=== PATIENT | female | born 1960 | race African-American/Black ===

== ENCOUNTER 2016-08-12 12:55 | Emergency (ER) | payer SELFPAY ==
[2016-08-12 13:01] VITALS: BMI 32.8
--- NOTE | 2016-08-12 13:30 | DR.GENAD ---
HPI - PCP Primary Care Physician: KORTNEY - HPI Comment HPI Comment: PATIENT OUT OF HER MEDICATIONS. SHE IS A DIABETIC AND HAVE HYPERTENSION. NO PCP CURRENTLY. BLOOD PRESSURE IS ELEVATED. PARESTHESIA NOTED TODAY. HEADACHE ON AND OFF FOR FEW DAYS. WORSE TODAY. NO FEVER. - Complaint/Symptoms Chief Complaint Doctors Comments: HEADACHE, WEAKNESS, LEFT ARM PAIN AND LEFT SIDED NUMBNESS. Chief Complaint:: PT C/O HEADACHE, DIZZINESS AND HIGH BLOOD PRESSUE. PT STATES SHE JUST MOVED HERE AND SHE IS OUT OF HER MEDICATIONS. PT STATES SHE ALSO IS A DIABETIC AND IS OUT OF THOSE MEDICATIONS ALSO. - Nurses notes reviewed Nurses Notes Review: Yes - Source History Provided: Patient - Mode of Arrival Mode of Arrival: Ambulatory - Timing Onset of Chief Complaint: 08/12/16 Came on: Suddenly - Duration Duration: Constant Duration: Days - Severity Severity: Moderate PMH - PMH Past Medical History: Yes Past Medical History: Diabetes, Hypertension Past Surgical History: Yes Surgical History: - Family History History of Family Medical Conditions: No - Social History Does any household member use tobacco: No Alcohol Use: None Do you use any recreational Drugs:: No Lives With: Family Lives Where: Home - infectious screening In the last 2 months have you had wt loss of >10#?: NO Have you had fever, night sweats or hemotysis?: No Have you traveled outside the country in the last 6 months?: No Isolation: Standard ROS - Review of Systems Constitutional: Weakness, Fatigue. negative: Chills, Fever Eyes: No Symptoms Reported ENTM: No Symptoms Reported Respiratoy: No Symptoms Reported Cardiovascular: No Symptoms Reported Gastrointestinal/Abdominal: No Symptoms Reported Genitourinary: No Symptoms Reported Neurological: Headache, Numbness (LT SIDE), Paresthesia (LT SIDE), Weakness, Dizziness Musculoskeletal: No Symptoms Reported Integumentary: No Symptoms Reported Hematologic/Lymphatic: No Symptoms Reported Endocrine: No Symptoms Reported All Other Systems: Reviewed and Negative PE - Vital Signs Vitals: Temperature 97.7 F Pulse Rate 90 Respiratory Rate 18 Blood Pressure [Left Arm] 159/97 Blood Pressure 188/89 O2 Sat by Pulse Oximetry 97 - General Limitations: No Limitations General Appearance: Alert - Head Head Exam: Normal Inspection - Eyes Eye exam: Normal Appearance - ENT ENT Exam: Normal External Ear Exam External Ear Exam: Normal External Inspection TM/Canal Exam: Bilateral Normal Nose Exam: Normal Nose Exam Mouth Exam: Normal Inspection Throat Exam: Normal Inspection - Neck Neck Exam: Normal Inspection - Chest Chest Inspection: Symmetric Chest Wall Rise - Respiratory Respiratory Exam: Normal Lung Sounds Bilat Respiratory Exam: Bilateral Clear to Auscultation - Cardiovascular Cardiovascular Exam: Regular Rate, Normal Rhythm, Normal Heart Sounds - Abdominal Exam Abdominal Exam: Normal Bowel Sounds, Soft. negative: Tenderness - Extremities Extremities Exam: Normal Inspection - Back Back Exam: Normal Inspection - Neurologic Neurological Exam: Alert, Oriented X3 - Psychiatric Psychiatric Exam: Anxious - Skin Skin Exam: Normal Color MDM - Differential Diagnosis Differential Diagnosis: HYPERTENSION, CVA, TIA, DKA, PA, LT SIDED PARESTHESIA. Course - Treatment Treatment: PROCARDIA IN ED. BP DECREASING. SEE ORDERS. - Education/Counseling Education/Counseling: Patient, Education Educated On: Treatment, Diagnosis, Needs for Follow Up ROR - Labs Reviewed Laboratory Results Reviewed?: Yes Result Diagrams: 08/12/16 13:34 08/12/16 13:34 Laboratory: WBC 6.1 X10^3/uL (3.6-10.0) 08/12/16 13:34 RBC 4.72 X10^6/uL (3.5-5.4) 08/12/16 13:34 Hgb 12.0 g/dL (12.0-16.0) 08/12/16 13:34 Hct 37.2 % (36.0-47.0) 08/12/16 13:34 MCV 78.9 fL (80.0-100.0) L 08/12/16 13:34 MCH 25.3 pg (27.0-34.0) L 08/12/16 13:34 MCHC 32.1 g/dL (33.0-35.0) L 08/12/16 13:34 RDW 13.5 % (11.6-16.5) 08/12/16 13:34 Plt Count 198 X10^3/uL (150.0-450.0) 08/12/16 13:34 Plt Count Comment Adequate (ADEQUATE) 08/12/16 13:34 MPV 9.7 fL (7.4-11.0) 08/12/16 13:34 Neut % 47.3 % (42.0-75.0) 08/12/16 13:34 Lymph % 38.6 % (21.0-51.0) 08/12/16 13:34 [place] % 11.2 % (0.0-13.0) 08/12/16 13:34 Eos % 2.0 % (0.9-2.9) 08/12/16 13:34 Baso % 0.9 % (0.2-1.0) 08/12/16 13:34 Neut # 2.9 x10^3/uL (2.2-4.8) 08/12/16 13:34 Lymph # 2.3 X10^3/uL (1.3-2.9) 08/12/16 13:34 [place] # 0.7 x10^3/uL (0.3-0.8) 08/12/16 13:34 Eos # 0.1 x10^3/uL (0.0-0.2) 08/12/16 13:34 Baso # 0.1 X10^3/uL (0.0-0.1) 08/12/16 13:34 Absolute Nucleated RBC 0.1 /100WBC 08/12/16 13:34 Plt Morphology Comment Normal (NORMAL) 08/12/16 13:34 RBC Morphology Abnormal (NORMAL) A 08/12/16 13:34 Microcytosis Slight A 08/12/16 13:34 Sodium 144 mmol/L (136-145) 08/12/16 13:34 Corrected Sodium 146 mmol/L (136-145) H 08/12/16 13:34 Potassium 3.8 mmol/L (3.5-5.1) 08/12/16 13:34 Chloride 105 mmol/L (98-107) 08/12/16 13:34 Carbon Dioxide 30.6 mmol/L (21-32) 08/12/16 13:34 BUN 9 mg/dL (7-18) 08/12/16 13:34 Creatinine 0.85 mg/dL (0.55-1.02) 08/12/16 13:34 Est GFR (MDRD) Af Amer > 60 (>60) 08/12/16 13:34 Est GFR (MDRD) Non-Af > 60 (>60) 08/12/16 13:34 Glucose 203 mg/dL (65-99) H 08/12/16 13:34 Calcium 8.8 mg/dL (8.5-10.1) 08/12/16 13:34 Corrected Calcium 9.4 mg/dL (8.5-10.1) 08/12/16 13:34 Total Bilirubin 0.30 mg/dL (0.2-1.0) 08/12/16 13:34 AST 17 Units/L (15-37) 08/12/16 13:34 ALT 26 Units/L (12-78) 08/12/16 13:34 Alkaline Phosphatase 115 Units/L (46-116) 08/12/16 13:34 Creatine Kinase 89 Units/L (26-192) 08/12/16 13:34 CK-MB (CK-2) < 1.0 ng/mL (0-4.0) 08/12/16 13:34 CK/CKMB % Calc 1.1 % (<4) 08/12/16 13:34 Troponin I < 0.02 ng/mL (0-1.5) 08/12/16 13:34 Total Protein 7.6 g/dL (6.4-8.2) 08/12/16 13:34 Albumin 3.3 g/dL (3.4-5.0) L 08/12/16 13:34 Globulin 4.3 g/dL (2.5-4.5) 08/12/16 13:34 Albumin/Globulin Ratio 0.8 Ratio (1.1-2.1) L 08/12/16 13:34 - XRAY XRAY Interpreted by: Radiologist XRAY Findings: REPORT DISCUSS WITH PATIENT. - EKG Rhythm: NSR (EKG NOTED) - Diagnosis Discharge Problem: Hyperglycemia, Paresthesia Hypertension Qualifiers: Hypertension type: essential hypertension Qualified Code(s): I10 - Essential ( primary) hypertension - Discharge Plan Disposition: HOME, SELF-CARE Condition: Stable Prescriptions: Hydrochlorothiazide [Hydrochlorothiazide 25 mg Tab] 25 mg PO QAM #30 tab Metformin HCl [GLUCOPHAGE 500 MG *] 500 mg PO BID #60 tab Nifedipine Ext Rel [Procardia Xl] 60 mg PO DAILY #30 tabcr - Follow ups/Referrals Follow ups/Referrals: NFD,None [Primary Care Provider] - 3 days ANABELL VILLAFANA [STAFF PHYSICIAN] - 3 days - Instructions Instructions: Hyperglycemia, [id number], Hypertension, Paresthesia Additional Instructions: RETURN TO ED IF WORSE.
[2016-08-12 13:41] LABS: BASOPHILS # (AUTO) 0.1 X10^3/uL (0.0-0.1); BASOPHILS % (AUTO) 0.9 % (0.2-1.0); EOSINOPHILS # (AUTO) 0.1 x10^3/uL (0.0-0.2); HEMATOCRIT 37.2 % (36.0-47.0); LYMPHOCYTES # (AUTO) 2.3 X10^3/uL (1.3-2.9); LYMPHOCYTES % (AUTO) 38.6 % (21.0-51.0); MEAN CORPUSCULAR HEMOGLOBIN 25.3 pg (27.0-34.0); MEAN CORPUSCULAR HGB CONC 32.1 g/dL (33.0-35.0); MEAN CORPUSCULAR VOLUME 78.9 fL (80.0-100.0); MEAN PLATELET VOLUME 9.7 fL (7.4-11.0); MONOCYTES # (AUTO) 0.7 x10^3/uL (0.3-0.8); MONOCYTES % (AUTO) 11.2 % (0.0-13.0); NEUTROPHILS # (AUTO) 2.9 x10^3/uL (2.2-4.8); NEUTROPHILS % (AUTO) 47.3 % (42.0-75.0); PLATELET COUNT 198 X10^3/uL (150.0-450.0); RED BLOOD COUNT 4.72 X10^6/uL (3.5-5.4); RED CELL DISTRIBUTION WIDTH 13.5 % (11.6-16.5); WHITE BLOOD COUNT 6.1 X10^3/uL (3.6-10.0)
[2016-08-12 13:54] VITALS: BP 159/97
[2016-08-12] MEDS ORDERED: NIFEDIPINE CAP 10 MG PO ONE (13:54)
[2016-08-12 13:58] LABS: MICROCYTOSIS SLIGHT
[2016-08-12 14:01] LABS: PLATELET MORPHOLOGY COMMENT NORMAL (NORMAL)
[2016-08-12 14:03] LABS: BLOOD UREA NITROGEN 9 mg/dL (7-18); CALCIUM 8.8 mg/dL (8.5-10.1); CARBON DIOXIDE 30.6 mmol/L (21-32); CHLORIDE 105 mmol/L (98-107); COR NA(FOR HYPERGLY) 146 mmol/L (136-145); CREATININE 0.85 mg/dL (0.55-1.02); GLUCOSE 203 mg/dL (65-99); SODIUM 144 mmol/L (136-145); TROPONIN I < 0.02 ng/mL (0-1.5); eGFR BLACK RACES > 60 (>60); eGFR NON BLACK RACES > 60 (>60)
--- NOTE | 2016-08-12 14:04 | RAD ---
AP Chest Indication: Chest pain Comparison: None available Findings: The trachea is midline. The cardiac silhouette is unremarkable. The lungs are clear without focal infiltrate or effusion. The bony thorax is unremarkable. IMPRESSION: 1. No acute cardiopulmonary abnormality. Reported By:
--- NOTE | 2016-08-12 14:06 | CT ---
CT brain without contrast Indication: Left-sided paresthesia Comparison: None available Technique: Multiple axial images of the brain were obtained from the skull base to the vertex without administr ation of IV contrast. Coronal and sagittal images were also provided. Radiation dose reduction techniques were performed utilizing adjustment for MA/kVP based on patient body size. Findings: Mild mucosal thickening of the right maxillary sinus. No acute intraparenchymal hemorrhage or mass can be identified. No extra-axial fluid collections ar e seen. No alteration in the attenuation of the brain parenchyma can be identified to suggest acute or subacute ischemic change. The ventricular system is symmetric and nondilated. The extracranial structures are grossly unremarkable. IMPRESSION: 1. No acute intracranial process is identified. Reported By:
[2016-08-12 14:07] LABS: ALANINE AMINOTRANSFERASE 26 Units/L (12-78); ALBUMIN 3.3 g/dL (3.4-5.0); ALKALINE PHOSPHATASE 115 Units/L (46-116); ASPARTATE AMINO TRANSFERASE 17 Units/L (15-37); CKMB % 1.1 % (<4); COR CA(FOR HYPOALB) 9.4 mg/dL (8.5-10.1); CREATINE KINASE 89 Units/L (26-192); CREATINE KINASE MB < 1.0 ng/mL (0-4.0); TOTAL PROTEIN 7.6 g/dL (6.4-8.2)
== END 2016-08-12 14:32 | disposition home or self-care (01) ==
LOC: ER 13:05
DX: R73.9 Hyperglycemia, unspecified (principal); R20.9 Unspecified disturbances of skin sensation; I10 Essential (primary) hypertension; R51 Headache
CPT/HCPCS: 36415; 70450; 71010; 80053; 82550; 82553; 84484; 85025; 93005; 93010; 99282; 99283

== ENCOUNTER 2016-11-14 18:51 | Emergency (ER) | payer SELFPAY ==
[2016-11-14 19:00] VITALS: BP 146/75; BMI 30.9
--- NOTE | 2016-11-14 20:43 | DR.GENAD ---
HPI - PCP Primary Care Physician: LEDY - HPI Comment HPI Comment: PATIENT USE HER NEB MEDICATION WITHOUT RELIEF. NO FEVER. COUGHING, PRODUCTIVE WITH YELLOW SPUTUM. HAVING CHEST TIGHTNESS ALSO. - Complaint/Symptoms Chief Complaint Doctors Comments: INCRESIONG SOB TIMES ONE WEEK. NOT RESPONDING TO MEDS AT HOME. Chief Complaint:: " BEEN TAKING BREATHING TREATMENTS FOR ABOUT MONTH AND THERE NOT HELPING BEEN COUGHING SNEEZING AND HURTING IN MY SIDE WHEN I COUGH." Self Treatment fo Chief Complaint: BREATHING TREATMENT ALBUTROL @1800 - Nurses notes reviewed Nurses Notes Review: Yes - Source History Provided: Patient - Mode of Arrival Mode of Arrival: Ambulatory - Timing Onset of Chief Complaint: 11/07/16 Came on: Suddenly - Duration Duration: Constant Duration: Days - Severity Severity: Moderate PMH - PMH Past Medical History: Yes Past Medical History: Diabetes, Hypertension Past Surgical History: Yes Surgical History: - Family History History of Family Medical Conditions: Yes Family Medical History: Diabetes Mellitus, [place], Hypertension - Social History Alcohol Use: None Do you use any recreational Drugs:: No Lives Where: Home - infectious screening Have you traveled outside the country in the last 6 months?: No ROS - Review of Systems Constitutional: Weakness, Fatigue. negative: Chills, Fever Eyes: No Symptoms Reported. negative: Eye Pain, Discharge ENTM: Nose Congestion. negative: Ear Pain, Nose Discharge, Throat Pain Respiratoy: Productive Cough, Non-Productive Cough, Short of Breath, Wheezing. negative: Hemoptysis Cardiovascular: Chest Pain (TIGHTNESS), Palpitations. negative: Edema Gastrointestinal/Abdominal: Nausea. negative: Abdominal Pain, Constipation, Diarrhea, Vomiting Genitourinary: negative: Dysuria, Frequency, Hematuria Neurological: Headache, Weakness, Dizziness Musculoskeletal: Back Pain, Muscle Pain PE - Vital Signs Vitals: Temperature 98.3 F Pulse Rate 103 Respiratory Rate 22 Blood Pressure [Left Arm] 159/97 Blood Pressure 146/75 O2 Sat by Pulse Oximetry 96 - General Limitations: No Limitations General Appearance: Alert, Anxious, In Distress - Head Head Exam: Normal Inspection, Atraumatic - Eyes Eye exam: PERRL, EOMI. negative: Scleral Icterus, Conjunctival Injection, Nystagmus - ENT ENT Exam: Normal External Ear Exam External Ear Exam: Normal External Inspection TM/Canal Exam: Bilateral Normal Nose Exam: Normal Nose Exam Mouth Exam: Normal Inspection Throat Exam: Normal Inspection - Neck Neck Exam: Trachea Midline. negative: Tenderness, Meningismus, Lymphadenopathy - Chest Chest Inspection: Symmetric Chest Wall Rise - Respiratory Respiratory Exam: Normal Lung Sounds Bilat Respiratory Exam: Bilateral Wheezing, Bilateral Rhonchi, Upper Wheezing, Lower Wheezing, Lower Rhonchi - Cardiovascular Cardiovascular Exam: Regular Rate, Normal Rhythm, Normal Heart Sounds - Abdominal Exam Abdominal Exam: Normal Bowel Sounds, Soft. negative: Tenderness - Extremities Extremities Exam: Normal Inspection - Back Back Exam: Normal Inspection - Neurologic Neurological Exam: Alert, Oriented X3, CN II-XII Intact, Normal Gait, Reflexes Normal. negative: Motor Sensory Deficit - Psychiatric Psychiatric Exam: Anxious - Skin Skin Exam: Intact MDM - Additional Information Additional Information Obtained From: Family - Differential Diagnosis Differential Diagnosis: PNEUMONIA, BRONCHITIS, ASTHMA EXACERBATION, Course - Treatment Treatment: SEE ODMARIO. NEB TREATMENT, IV SOLUMEDROL AND ANTIBIOTIC TREATMENT IN ED. COMNTINUE TO IMPROVE. D/C HOME WHEN HER BREATHING. - Reevaluation 1st: Improved (SOB IMPROVING. KEPT IN ED TILL BREATHING WAS STABLE. O2 SAT IN 90S.) - Education/Counseling Education/Counseling: Patient, Family, Education Educated On: Treatment, Diagnosis ROR - Labs Reviewed Laboratory Results Reviewed?: Yes Result Diagrams: 11/14/16 21:00 11/14/16 21:00 Laboratory: WBC 7.3 X10^3/uL (3.6-10.0) 11/14/16 21:00 RBC 4.82 X10^6/uL (3.5-5.4) 11/14/16 21:00 Hgb 12.4 g/dL (12.0-16.0) 11/14/16 21:00 Hct 38.0 % (36.0-47.0) 11/14/16 21:00 MCV 78.7 fL (80.0-100.0) L 11/14/16 21:00 MCH 25.7 pg (27.0-34.0) L 11/14/16 21:00 MCHC 32.6 g/dL (33.0-35.0) L 11/14/16 21:00 RDW 13.5 % (11.6-16.5) 11/14/16 21:00 Plt Count 240 X10^3/uL (150.0-450.0) 11/14/16 21:00 Plt Count Comment Adequate (ADEQUATE) 11/14/16 21:00 MPV 9.6 fL (7.4-11.0) 11/14/16 21:00 Neut % 52.2 % (42.0-75.0) 11/14/16 21:00 Lymph % 29.9 % (21.0-51.0) 11/14/16 21:00 [place] % 13.7 % (0.0-13.0) H 11/14/16 21:00 Eos % 3.5 % (0.9-2.9) H 11/14/16 21:00 Baso % 0.7 % (0.2-1.0) 11/14/16 21:00 Neut # 3.8 x10^3/uL (2.2-4.8) 11/14/16 21:00 Lymph # 2.2 X10^3/uL (1.3-2.9) 11/14/16 21:00 [place] # 1.0 x10^3/uL (0.3-0.8) H 11/14/16 21:00 Eos # 0.3 x10^3/uL (0.0-0.2) H 11/14/16 21:00 Baso # 0.1 X10^3/uL (0.0-0.1) 11/14/16 21:00 Absolute Nucleated RBC 0.0 /100WBC 11/14/16 21:00 Plt Morphology Comment Normal (NORMAL) 11/14/16 21:00 RBC Morphology Abnormal (NORMAL) A 11/14/16 21:00 Hypochromasia Slight A 11/14/16 21:00 Poikilocytosis Slight A 11/14/16 21:00 Sample Site Lbra 11/14/16 22:53 ABG pH 7.460 (7.35-7.45) H 11/14/16 22:53 ABG pCO2 37.0 mmHg (35.0-45.0) 11/14/16 22:53 ABG pO2 89.0 mmHg (80.0-100.0) 11/14/16 22:53 ABG HCO3 26.3 mmol/L (22-26) H 11/14/16 22:53 ABG O2 Saturation 97.0 % (90-100) 11/14/16 22:53 ABG Base Excess 2.5 mmol/L (-2.0-2.0) H 11/14/16 22:53 Filiberto Test Na 11/14/16 22:53 A-a Gradient 14.0 mmHg 11/14/16 22:53 FiO2 21.000 11/14/16 22:53 Blood Gas Comments Kamran abg well-mtf 11/14/16 22:53 Sodium 138 mmol/L (136-145) 11/14/16 21:00 Corrected Sodium 139 mmol/L (136-145) 11/14/16 21:00 Potassium 3.8 mmol/L (3.5-5.1) 11/14/16 21:00 Chloride 104 mmol/L (98-107) 11/14/16 21:00 Carbon Dioxide 32.4 mmol/L (21-32) H 11/14/16 21:00 BUN 11 mg/dL (7-18) 11/14/16 21:00 Creatinine 0.76 mg/dL (0.55-1.02) 11/14/16 21:00 Est GFR (MDRD) Af Amer > 60 (>60) 11/14/16 21:00 Est GFR (MDRD) Non-Af > 60 (>60) 11/14/16 21:00 Glucose 146 mg/dL (65-99) H 11/14/16 21:00 Calcium 9.1 mg/dL (8.5-10.1) 11/14/16 21:00 Corrected Calcium TNP 11/14/16 21:00 Total Bilirubin 0.20 mg/dL (0.2-1.0) 11/14/16 21:00 AST 22 Units/L (15-37) 11/14/16 21:00 ALT 30 Units/L (12-78) 11/14/16 21:00 Alkaline Phosphatase 153 Units/L (46-116) H 11/14/16 21:00 Total Protein 8.4 g/dL (6.4-8.2) H 11/14/16 21:00 Albumin 3.5 g/dL (3.4-5.0) 11/14/16 21:00 Globulin 4.9 g/dL (2.5-4.5) H 11/14/16 21:00 Albumin/Globulin Ratio 0.7 Ratio (1.1-2.1) L 11/14/16 21:00 - XRAY XRAY Interpreted by: Radiologist XRAY Findings: REPORT DISCUSS WITH PATIENT - Diagnosis Discharge Problem: Bronchitis Asthma exacerbation attacks Qualifiers: Asthma severity: moderate persistent Qualified Code(s): J45.41 - Moderate persistent asthma with (acute) exacerbation - Discharge Plan Disposition: HOME, SELF-CARE Condition: Stable Prescriptions: Azithromycin [ZITHROMAX Tab 250 mg *] 1 dose PO DAILY #6 tab Hydrocodone Polist/Chlorphenir [Tussionex Pennkinetic Susp] 5 ml PO Q12H PRN # 60 ml PRN Reason: Cough Prednisone [Prednisone Tab 10 mg] 10 mg PO QAM #7 tab - Follow ups/Referrals Follow ups/Referrals: NFD,None [Primary Care Provider] - 2 weeks - Instructions Instructions: Asthma, Adult, [id number], Acute Bronchitis, Wyce-[id number], Cough, Adult Additional Instructions: RETURN TO ED IF WORSE.
[2016-11-14] MEDS ORDERED: SOLU-Medrol 125 MG VIAL IVP ONE (20:44)
[2016-11-14] MEDS ORDERED: SOLU-Medrol 125 MG VIAL ONE (20:47)
[2016-11-14] MEDS ORDERED: DUONEB 0.5 MG/3 MG ONE (21:04)
[2016-11-14 21:11] LABS: BASOPHILS # (AUTO) 0.1 X10^3/uL (0.0-0.1); BASOPHILS % (AUTO) 0.7 % (0.2-1.0); EOSINOPHILS # (AUTO) 0.3 x10^3/uL (0.0-0.2); EOSINOPHILS % (AUTO) 3.5 % (0.9-2.9); HEMOGLOBIN 12.4 g/dL (12.0-16.0); LYMPHOCYTES # (AUTO) 2.2 X10^3/uL (1.3-2.9); LYMPHOCYTES % (AUTO) 29.9 % (21.0-51.0); MEAN CORPUSCULAR HEMOGLOBIN 25.7 pg (27.0-34.0); MEAN CORPUSCULAR HGB CONC 32.6 g/dL (33.0-35.0); MEAN CORPUSCULAR VOLUME 78.7 fL (80.0-100.0); MEAN PLATELET VOLUME 9.6 fL (7.4-11.0); MONOCYTES % (AUTO) 13.7 % (0.0-13.0); NEUTROPHILS # (AUTO) 3.8 x10^3/uL (2.2-4.8); NEUTROPHILS % (AUTO) 52.2 % (42.0-75.0); PLATELET COUNT 240 X10^3/uL (150.0-450.0); RED BLOOD COUNT 4.82 X10^6/uL (3.5-5.4); RED CELL DISTRIBUTION WIDTH 13.5 % (11.6-16.5); WHITE BLOOD COUNT 7.3 X10^3/uL (3.6-10.0)
[2016-11-14 21:19] LABS: HYPOCHROMASIA SLIGHT; PLATELET MORPHOLOGY COMMENT NORMAL (NORMAL); POIKILOCYTOSIS SLIGHT
[2016-11-14 21:24] LABS: ALANINE AMINOTRANSFERASE 30 Units/L (12-78); ALBUMIN 3.5 g/dL (3.4-5.0); ALKALINE PHOSPHATASE 153 Units/L (46-116); ASPARTATE AMINO TRANSFERASE 22 Units/L (15-37); BLOOD UREA NITROGEN 11 mg/dL (7-18); CALCIUM 9.1 mg/dL (8.5-10.1); CARBON DIOXIDE 32.4 mmol/L (21-32); CHLORIDE 104 mmol/L (98-107); COR NA(FOR HYPERGLY) 139 mmol/L (136-145); CREATININE 0.76 mg/dL (0.55-1.02); GLUCOSE 146 mg/dL (65-99); SODIUM 138 mmol/L (136-145); TOTAL PROTEIN 8.4 g/dL (6.4-8.2); eGFR BLACK RACES > 60 (>60); eGFR NON BLACK RACES > 60 (>60)
--- NOTE | 2016-11-14 21:41 | RAD ---
HISTORY: Asthma attack. Severe shortness of breath and wheezing. Study: Chest one-view Comparison: August 12, 2016. Findings: The trachea is midline. The cardiac silhouette is unremarkable. There is mild prominence of the kaylee tral bronchial pulmonary markings in both lungs. The lungs are clear without focal infiltrate or eff usion. The bony thorax is unremarkable. IMPRESSION: 1. Bronchitis versus reactive airway disease. Reported By:
[2016-11-14 23:00] LABS: ABG BASE EXCESS 2.5 mmol/L (-2.0-2.0); ABG HCO3 26.3 mmol/L (22-26)
[2016-11-14] MEDS ORDERED: TUSSIONEX PENNKINETIC SUSP PO ONE (23:13)
[2016-11-14] MEDS ORDERED: TUSSIONEX PENNKINETIC SUSP ONE (23:15)
[2016-11-14] MEDS ORDERED: ZITHROMAX TAB 250 MG PO ONE ×2 (23:22→23:48)
== END 2016-11-15 02:08 | disposition home or self-care (01) ==
LOC: ER 19:06
DX: J40 Bronchitis, not specified as acute or chronic (principal); J45.41 Moderate persistent asthma with (acute) exacerbation
CPT/HCPCS: 36415; 36600; 71010; 80053; 82803; 85025; 96365; 96374; 99283; A4222; Q0144; J2930; J7620

== ENCOUNTER 2017-05-21 12:56 | Emergency (ER) | payer SELFPAY ==
[2017-05-21 13:04] VITALS: BMI 33.7
--- NOTE | 2017-05-21 13:24 | DR.URIAD ---
HPI - Time Seen Time seen: 13:20 - PCP Primary Care Physician: NFD - Complaint Chief Complaint Doctors Comments: Patient presents with complaint of cough and congestion for one week. She has asthma but albuterol is not helping. She has hypertension but is out of BP medicine for one week. She denies cigarettes. Chief Complaint:: PT C/O CCC FOR 2 WEEKS AND ITS GETTING WORSE.. AUDIBLE WHEEZING NOTED PT IS OUT OF BP MEDS FOR A WEEK ALSO PT IS ON PROCARDIA AT HOME .. Self Treatment fo Chief Complaint: PT HAS BEEN TAKING OTC COUGH MEDS AND DELSYM.. - Source History Provided: Patient - Mode of Arrival Mode of Arrival: Ambulatory - Timing Onset of Chief Complaint: 05/07/17 PMH - PMH Past Medical History: Yes Past Medical History: Asthma, Diabetes, Hypertension Past Surgical History: No Surgical History: - Family History History of Family Medical Conditions: Yes Family Medical History: Diabetes Mellitus, [place], Hypertension - Social History Does patient currently use any type of tobacco product: No Have you used tobacco products in the last 12 months: No Type of Tobacco Use: None Does any household member use tobacco: No Alcohol Use: None Do you use any recreational Drugs:: No Lives With: Family Lives Where: Home - infectious screening In the last 2 months have you had wt loss of >10#?: NO Have you had fever, night sweats or hemotysis?: No Have you traveled outside the country in the last 6 months?: No Isolation: Standard ROS - Review of Systems Constitutional: No Symptoms Reported Eyes: No Symptoms Reported ENTM: No Symptoms Reported Respiratoy: Wheezing Cardiovascular: No Symptoms Reported Gastrointestinal/Abdominal: No Symptoms Reported Genitourinary: No Symptoms Reported Neurological: No Symptoms Reported Musculoskeletal: No Symptoms Reported Integumentary: No Symptoms Reported Hematologic/Lymphatic: No Symptoms Reported Endocrine: No Symptoms Reported Psychiatric: No Symptoms Reported All Other Systems: Reviewed and Negative PE - Vital Signs Vitals: Temperature 98.0 F Pulse Rate 95 Respiratory Rate 20 Blood Pressure [Left Arm] 192/92 Blood Pressure 202/89 O2 Sat by Pulse Oximetry 98 - General General Appearance: Alert, In No Apparent Distress - Head Head Exam: Normal Inspection, Atraumatic - Eyes Eye exam: Normal Appearance, PERRL, EOMI - ENT ENT Exam: Normal Exam External Ear Exam: Normal External Inspection TM/Canal Exam: Bilateral Normal Nose Exam: Normal Nose Exam Nasal Speculum Exam: Bilateral Normal Mouth Exam: Normal Inspection Throat Exam: Normal Inspection - Neck Neck Exam: Normal Inspection, Full ROM - Chest Chest Inspection: Normal Inspection - Respiratory Respiratory Exam: Prolonged Expiratory Phase. negative: Respiratory Distress Respiratory Exam: Bilateral Rhonchi - Cardiovascular Cardiovascular Exam: Regular Rate, Normal Rhythm - Abdominal Exam Abdominal Exam: Normal Inspection, Normal Bowel Sounds Abdominal Tenderness: negative: RUQ, RLQ, LUQ, LLQ, Epigastrium, Suprapubic, Diffuse, Mild, Moderate, Severe, Other - Extremeties Extremities Exam: Normal Inspection, Full ROM - Back Back Exam: Normal Inspection - Neurologic Neurological Exam: Alert, Oriented X3, CN II-XII Intact - Psychiatric Psychiatric Exam: Normal Affect - Skin Skin Exam: Warm, Dry, Intact ROR - Labs Reviewed Result Diagrams: 05/21/17 13:40 05/21/17 13:40 Laboratory: WBC 6.6 X10^3/uL (3.6-10.0) 05/21/17 13:40 RBC 4.54 X10^6/uL (3.5-5.4) 05/21/17 13:40 Hgb 11.7 g/dL (12.0-16.0) L 05/21/17 13:40 Hct 35.9 % (36.0-47.0) L 05/21/17 13:40 MCV 79.2 fL (80.0-100.0) L 05/21/17 13:40 MCH 25.8 pg (27.0-34.0) L 05/21/17 13:40 MCHC 32.5 g/dL (33.0-35.0) L 05/21/17 13:40 RDW 13.5 % (11.6-16.5) 05/21/17 13:40 Plt Count 222 X10^3/uL (150.0-450.0) 05/21/17 13:40 MPV 9.8 fL (7.4-11.0) 05/21/17 13:40 Neut % 50.1 % (42.0-75.0) 05/21/17 13:40 Lymph % 34.9 % (21.0-51.0) 05/21/17 13:40 [place] % 10.2 % (0.0-13.0) 05/21/17 13:40 Eos % 3.9 % (0.9-2.9) H 05/21/17 13:40 Baso % 0.9 % (0.2-1.0) 05/21/17 13:40 Neut # 3.3 x10^3/uL (2.2-4.8) 05/21/17 13:40 Lymph # 2.3 X10^3/uL (1.3-2.9) 05/21/17 13:40 [place] # 0.7 x10^3/uL (0.3-0.8) 05/21/17 13:40 Eos # 0.3 x10^3/uL (0.0-0.2) H 05/21/17 13:40 Baso # 0.1 X10^3/uL (0.0-0.1) 05/21/17 13:40 Absolute Nucleated RBC 0.0 /100WBC 05/21/17 13:40 Sodium 139 mmol/L (136-145) 05/21/17 13:40 Corrected Sodium 140 mmol/L (136-145) 05/21/17 13:40 Potassium 3.9 mmol/L (3.5-5.1) 05/21/17 13:40 Chloride 104 mmol/L (98-107) 05/21/17 13:40 Carbon Dioxide 30.5 mmol/L (21-32) 05/21/17 13:40 BUN 10 mg/dL (7-18) 05/21/17 13:40 Creatinine 0.67 mg/dL (0.55-1.02) 05/21/17 13:40 Est GFR (MDRD) Af Amer > 60 (>60) 05/21/17 13:40 Est GFR (MDRD) Non-Af > 60 (>60) 05/21/17 13:40 Glucose 148 mg/dL (65-99) H 05/21/17 13:40 Calcium 9.0 mg/dL (8.5-10.1) 05/21/17 13:40 Influenza Type A (PCR) Negative (NEGATIVE) 05/21/17 13:41 Influenza Type B (PCR) Negative (NEGATIVE) 05/21/17 13:41 - XRAY XRAY Interpreted by: Radiologist (chest; No change or acute chest finding) - Diagnosis Discharge Problem: Asthma exacerbation attacks Qualifiers: Asthma severity: mild Asthma persistence: unspecified Qualified Code(s): J45.901 - Unspecified asthma with (acute) exacerbation Hypertension Qualifiers: Hypertension type: essential hypertension Qualified Code(s): I10 - Essential ( primary) hypertension - Discharge Plan Condition: Stable - Follow ups/Referrals Follow ups/Referrals: NFD,None [Primary Care Provider] - 3 days - Instructions
[2017-05-21] MEDS ORDERED: NS 1000 ML 1,000 ML ONE (13:25)
[2017-05-21] MEDS ORDERED: CATAPRES TAB 0.2 MG ONE (13:26)
[2017-05-21] MEDS ORDERED: SOLU-Medrol 125 MG VIAL ONE (13:26)
[2017-05-21] MEDS ORDERED: DUONEB 0.5 MG/3 MG ONE (13:26)
[2017-05-21] MEDS ORDERED: CATAPRES TAB 0.2 MG PO ONE (13:28)
--- NOTE | 2017-05-21 13:45 | RAD ---
Examination: Portable AP chest History: Wheezing Comparison 11/14/2016 Findings: Continued normal heart size with clear lungs and pleural spaces. Impression: No change or acute chest findings. Reported By:
[2017-05-21] MEDS ORDERED: DUONEB 0.5 MG/3 MG NEB ONE ×2 (13:46→14:01)
[2017-05-21 13:48] LABS: BASOPHILS # (AUTO) 0.1 X10^3/uL (0.0-0.1); BASOPHILS % (AUTO) 0.9 % (0.2-1.0); EOSINOPHILS # (AUTO) 0.3 x10^3/uL (0.0-0.2); EOSINOPHILS % (AUTO) 3.9 % (0.9-2.9); HEMATOCRIT 35.9 % (36.0-47.0); HEMOGLOBIN 11.7 g/dL (12.0-16.0); LYMPHOCYTES # (AUTO) 2.3 X10^3/uL (1.3-2.9); LYMPHOCYTES % (AUTO) 34.9 % (21.0-51.0); MEAN CORPUSCULAR HEMOGLOBIN 25.8 pg (27.0-34.0); MEAN CORPUSCULAR HGB CONC 32.5 g/dL (33.0-35.0); MEAN CORPUSCULAR VOLUME 79.2 fL (80.0-100.0); MEAN PLATELET VOLUME 9.8 fL (7.4-11.0); MONOCYTES # (AUTO) 0.7 x10^3/uL (0.3-0.8); MONOCYTES % (AUTO) 10.2 % (0.0-13.0); NEUTROPHILS # (AUTO) 3.3 x10^3/uL (2.2-4.8); NEUTROPHILS % (AUTO) 50.1 % (42.0-75.0); PLATELET COUNT 222 X10^3/uL (150.0-450.0); RED BLOOD COUNT 4.54 X10^6/uL (3.5-5.4); RED CELL DISTRIBUTION WIDTH 13.5 % (11.6-16.5); WHITE BLOOD COUNT 6.6 X10^3/uL (3.6-10.0)
[2017-05-21 14:00] LABS: BLOOD UREA NITROGEN 10 mg/dL (7-18); CARBON DIOXIDE 30.5 mmol/L (21-32); CHLORIDE 104 mmol/L (98-107); COR NA(FOR HYPERGLY) 140 mmol/L (136-145); CREATININE 0.67 mg/dL (0.55-1.02); SODIUM 139 mmol/L (136-145); eGFR BLACK RACES > 60 (>60); eGFR NON BLACK RACES > 60 (>60)
[2017-05-21] MEDS ORDERED: NS 1000 ML 1,000 ML IV SCH (14:00)
[2017-05-21] MEDS ORDERED: PROCARDIA XL PO ONE ×2 (15:21→15:28)
[2017-05-21 15:31] VITALS: BP 168/83
[2017-05-21] MEDS ORDERED: PROCARDIA XL PO SCH (16:00)
[2017-05-21] MEDS ORDERED: DUONEB 0.5 MG/3 MG NEB SCH (21:00)
== END 2017-05-21 15:31 | disposition home or self-care (01) ==
LOC: ER 13:19
DX: J45.901 Unspecified asthma with (acute) exacerbation (principal); I10 Essential (primary) hypertension
CPT/HCPCS: 36415; 71045; 80048; 85025; 87502; 94640; 96365; 96374; 99282; 99283; A4222; J2930; J7620

== ENCOUNTER 2017-08-31 22:54 | Observation (INO) | payer SELFPAY ==
[2017-08-31 23:05] VITALS: BMI 32.1
--- NOTE | 2017-09-01 00:29 | DR.GENAD ---
HPI - PCP Primary Care Physician: LEDY - HPI Comment HPI Comment: IMPROVE BUT IS GETTING WORSE AGAIN. HISTORY HTN AND DIABETES. COMPLAINT WITH MEDS. NO HISTORY OF TRAUMA. NO FEVER. HAVE HEADACHE BUT NO N/V. - Complaint/Symptoms Chief Complaint Doctors Comments: DIZZINESS, LT SIDED NUMBNESS STARTED 9HR BEFORE COMING TO ED. Chief Complaint:: DIZZINESS NUMB IN ARM AND FEET HEADACHES - Nurses notes reviewed Nurses Notes Review: Yes - Source History Provided: Patient - Mode of Arrival Mode of Arrival: Ambulatory - Timing Onset of Chief Complaint: 08/31/17 Came on: Suddenly - Duration Duration: Constant Duration: Hours - Severity Severity: Moderate PMH - PMH Past Medical History: Yes Past Medical History: Asthma, Diabetes, Hypertension Past Surgical History: Yes Surgical History: Past Surgical History Comment: CSECTION X2. - Family History History of Family Medical Conditions: No Family Medical History: Diabetes Mellitus, [place], Hypertension - Social History Does patient currently use any type of tobacco product: No Have you used tobacco products in the last 12 months: No Type of Tobacco Use: None Does any household member use tobacco: No Alcohol Use: None Do you use any recreational Drugs:: No Lives With: Family Lives Where: Home - infectious screening In the last 2 months have you had wt loss of >10#?: NO Have you had fever, night sweats or hemotysis?: No Have you traveled outside the country in the last 6 months?: No Isolation: Standard ROS - Review of Systems Constitutional: No Symptoms Reported Eyes: No Symptoms Reported ENTM: No Symptoms Reported Respiratoy: No Symptoms Reported Cardiovascular: No Symptoms Reported Gastrointestinal/Abdominal: No Symptoms Reported Genitourinary: No Symptoms Reported Neurological: Headache, Dizziness Musculoskeletal: No Symptoms Reported Integumentary: No Symptoms Reported Hematologic/Lymphatic: No Symptoms Reported Endocrine: No Symptoms Reported All Other Systems: Reviewed and Negative PE - Vital Signs Vitals: Temperature 98.2 F Pulse Rate 100 Respiratory Rate 20 Blood Pressure [Left Arm] 168/83 Blood Pressure 144/72 O2 Sat by Pulse Oximetry 98 - General Limitations: No Limitations General Appearance: Alert - Head Head Exam: Normal Inspection - Eyes Eye exam: Normal Appearance - ENT ENT Exam: Normal External Ear Exam External Ear Exam: Normal External Inspection TM/Canal Exam: Bilateral Normal Nose Exam: Normal Nose Exam Mouth Exam: Normal Inspection Throat Exam: Normal Inspection - Neck Neck Exam: Trachea Midline - Chest Chest Inspection: Symmetric Chest Wall Rise - Respiratory Respiratory Exam: Bilateral Clear to Auscultation - Cardiovascular Cardiovascular Exam: Regular Rate, Normal Rhythm - Abdominal Exam Abdominal Exam: Normal Bowel Sounds. negative: Distention - Extremities Extremities Exam: Normal Inspection - Back Back Exam: Normal Inspection - Neurologic Neurological Exam: Alert, Oriented X3 - Psychiatric Psychiatric Exam: Normal Affect, Normal Mood - Skin Skin Exam: Normal Color MDM - Differential Diagnosis Differential Diagnosis: CVA, TIA, DIZZINESS, LEFT SIDED PARESTHESIA, LEFT FACIAL DECREASE SENSATION Course - Treatment Treatment: SEE ORDERS. - Consultation Consultation Comments: DISCUSS PATIENT WITH DR. LARES. HE WILL ADMIT PATIENT. - Education/Counseling Education/Counseling: Patient, Education Educated On: Diagnosis ROR - Labs Reviewed Laboratory Results Reviewed?: Yes Result Diagrams: 09/01/17 01:00 09/01/17 01:00 Laboratory: WBC 8.8 X10^3/uL (3.6-10.0) 09/01/17 01:00 RBC 4.61 X10^6/uL (3.5-5.4) 09/01/17 01:00 Hgb 12.0 g/dL (12.0-16.0) 09/01/17 01:00 Hct 36.4 % (36.0-47.0) 09/01/17 01:00 MCV 78.9 fL (80.0-100.0) L 09/01/17 01:00 MCH 26.0 pg (27.0-34.0) L 09/01/17 01:00 MCHC 32.9 g/dL (33.0-35.0) L 09/01/17 01:00 RDW 13.4 % (11.6-16.5) 09/01/17 01:00 Plt Count 253 X10^3/uL (150.0-450.0) 09/01/17 01:00 MPV 9.4 fL (7.4-11.0) 09/01/17 01:00 Neut % (Auto) 53.3 % (42.0-75.0) 09/01/17 01:00 Lymph % (Auto) 35.3 % (21.0-51.0) 09/01/17 01:00 [place] % (Auto) 8.3 % (0.0-13.0) 09/01/17 01:00 Eos % (Auto) 2.6 % (0.9-2.9) 09/01/17 01:00 Baso % (Auto) 0.5 % (0.2-1.0) 09/01/17 01:00 Neut # (Auto) 4.7 x10^3/uL (2.2-4.8) 09/01/17 01:00 Lymph # (Auto) 3.1 X10^3/uL (1.3-2.9) H 09/01/17 01:00 [place] # (Auto) 0.7 x10^3/uL (0.3-0.8) 09/01/17 01:00 Eos # (Auto) 0.2 x10^3/uL (0.0-0.2) 09/01/17 01:00 Baso # (Auto) 0.0 X10^3/uL (0.0-0.1) 09/01/17 01:00 Absolute Nucleated RBC 0.0 /100WBC 09/01/17 01:00 Sodium 138 mmol/L (136-145) 09/01/17 01:00 Corrected Sodium 142 mmol/L (136-145) 09/01/17 01:00 Potassium 3.4 mmol/L (3.5-5.1) L 09/01/17 01:00 Chloride 101 mmol/L (98-107) 09/01/17 01:00 Carbon Dioxide 31.1 mmol/L (21-32) 09/01/17 01:00 BUN 17 mg/dL (7-18) 09/01/17 01:00 Creatinine 0.92 mg/dL (0.55-1.02) 09/01/17 01:00 Est GFR (MDRD) Af Amer > 60 (>60) 09/01/17 01:00 Est GFR (MDRD) Non-Af > 60 (>60) 09/01/17 01:00 Glucose 258 mg/dL (65-99) H 09/01/17 01:00 Calcium 8.9 mg/dL (8.5-10.1) 09/01/17 01:00 Corrected Calcium 9.5 mg/dL (8.5-10.1) 09/01/17 01:00 Total Bilirubin 0.10 mg/dL (0.2-1.0) L 09/01/17 01:00 AST 13 Units/L (15-37) L 09/01/17 01:00 ALT 23 Units/L (12-78) 09/01/17 01:00 Alkaline Phosphatase 144 Units/L (46-116) H 09/01/17 01:00 Creatine Kinase 117 Units/L (26-192) 09/01/17 01:00 CK-MB (CK-2) < 1.0 ng/mL (0-4.0) 09/01/17 01:00 CK/CKMB % Calc 0.9 % (<4) 09/01/17 01:00 Troponin I < 0.02 ng/mL (0-1.5) 09/01/17 01:00 Total Protein 7.8 g/dL (6.4-8.2) 09/01/17 01:00 Albumin 3.3 g/dL (3.4-5.0) L 09/01/17 01:00 Globulin 4.5 g/dL (2.5-4.5) 09/01/17 01:00 Albumin/Globulin Ratio 0.7 Ratio (1.1-2.1) L 09/01/17 01:00 Acetone, Semi-Quant Negative (NEGATIVE) 09/01/17 00:29 - XRAY XRAY Interpreted by: Radiologist XRAY Findings: REPORT DISCUSS WITH PATIENT. - EKG Rhythm: NSR (EKG NOTED) - Diagnosis Discharge Problem: Hypertension, TIA (transient ischemic attack), Meralgia paresthetica of left side, Paresthesia - Discharge Plan Disposition: ADMITTED INPATIENT Condition: Stable - Follow ups/Referrals - Instructions
[2017-09-01 01:07] LABS: BASOPHILS % (AUTO) 0.5 % (0.2-1.0); EOSINOPHILS # (AUTO) 0.2 x10^3/uL (0.0-0.2); EOSINOPHILS % (AUTO) 2.6 % (0.9-2.9); HEMATOCRIT 36.4 % (36.0-47.0); LYMPHOCYTES # (AUTO) 3.1 X10^3/uL (1.3-2.9); LYMPHOCYTES % (AUTO) 35.3 % (21.0-51.0); MEAN CORPUSCULAR HGB CONC 32.9 g/dL (33.0-35.0); MEAN CORPUSCULAR VOLUME 78.9 fL (80.0-100.0); MEAN PLATELET VOLUME 9.4 fL (7.4-11.0); MONOCYTES # (AUTO) 0.7 x10^3/uL (0.3-0.8); MONOCYTES % (AUTO) 8.3 % (0.0-13.0); NEUTROPHILS # (AUTO) 4.7 x10^3/uL (2.2-4.8); NEUTROPHILS % (AUTO) 53.3 % (42.0-75.0); PLATELET COUNT 253 X10^3/uL (150.0-450.0); RED BLOOD COUNT 4.61 X10^6/uL (3.5-5.4); RED CELL DISTRIBUTION WIDTH 13.4 % (11.6-16.5); WHITE BLOOD COUNT 8.8 X10^3/uL (3.6-10.0)
--- NOTE | 2017-09-01 01:11 | RAD ---
Chest AP portable Indication: Headache and left arm numbness Comparison: 05/21/2017 Findings: There is no pneumothorax or effusion. Heart size is normal. Impression: No acute chest process or change from the prior Reported By:
--- NOTE | 2017-09-01 01:13 | CT ---
CT head without contrast Indication: Headache and left arm numbness Technique: Axial images from the skullbase to the vertex without contrast. Coronal and sagittal refor mats provided. Findings: There is no acute intracranial hemorrhage, mass or mass effect. No extra-axial fluid collec tion or abnormal area of hypoattenuation seen to suggest infarction. Ventricles and sulci are normal. Minimal right maxillary sinus mucosal thickening seen. Review of bone windows shows no osseous abnor mality with the other paranasal sinuses and mastoid air cells clear where visualized. Impression: No acute intracranial hemorrhage Reported By:
[2017-09-01 01:45] LABS: BLOOD UREA NITROGEN 17 mg/dL (7-18); CALCIUM 8.9 mg/dL (8.5-10.1); CARBON DIOXIDE 31.1 mmol/L (21-32); CHLORIDE 101 mmol/L (98-107); COR NA(FOR HYPERGLY) 142 mmol/L (136-145); CREATININE 0.92 mg/dL (0.55-1.02); SODIUM 138 mmol/L (136-145); TROPONIN I < 0.02 ng/mL (0-1.5); eGFR BLACK RACES > 60 (>60); eGFR NON BLACK RACES > 60 (>60)
[2017-09-01 01:49] LABS: ALANINE AMINOTRANSFERASE 23 Units/L (12-78); ALBUMIN 3.3 g/dL (3.4-5.0); ALKALINE PHOSPHATASE 144 Units/L (46-116); ASPARTATE AMINO TRANSFERASE 13 Units/L (15-37); CKMB % 0.9 % (<4); COR CA(FOR HYPOALB) 9.5 mg/dL (8.5-10.1); CREATINE KINASE 117 Units/L (26-192); CREATINE KINASE MB < 1.0 ng/mL (0-4.0); TOTAL PROTEIN 7.8 g/dL (6.4-8.2)
[2017-09-01] MEDS ORDERED: DUONEB 0.5 MG/3 MG NEB ONE ×2 (03:29→12:35)
[2017-09-01] MEDS ORDERED: NS 1000 ML 1,000 ML IV SCH (04:00)
[2017-09-01] MEDS ORDERED: PREVNAR 13 IM ONE (04:37)
[2017-09-01] MEDS ORDERED: FLUVIRIN IM ONE (04:37)
[2017-09-01] MEDS ORDERED: TYLENOL 325 MG TAB PO PRN (05:01)
[2017-09-01] MEDS ORDERED: K-RIDER 10 MEQ/NS 100 ML 10 MEQ/100 ML BAG IV PRN (07:31)
[2017-09-01] MEDS ORDERED: MAGNESIUM SULFATE 1 GM/100 mL PREMIX 1 GM/100 ML BAG IV PRN (07:31)
[2017-09-01] MEDS ORDERED: POTASSIUM CHL 40 MEQ/NS 0.45% 500 ML IV PRN (07:31)
[2017-09-01] MEDS ORDERED: K-LYTE EFFERVESCENT PO PRN (07:31)
[2017-09-01] MEDS ORDERED: POTASSIUM CHL 60 MEQ/NS 0.45% 500 ML IV PRN (07:31)
[2017-09-01] MEDS ORDERED: POTASSIUM CHLORIDE LIQ 20 MEQ UDC PO PRN (07:31)
[2017-09-01 07:42] LABS: BILIRUBIN,URINE NEGATIVE (NEGATIVE); BLOOD/HEMOGLOBIN,URINE NEGATIVE (NEGATIVE); GLUCOSE, URINE NEGATIVE (NEGATIVE); KETONES,URINE NEGATIVE (NEGATIVE); LEUKOCYTE ESTERASE ,URINE 1+ (NEGATIVE); NITRITES,URINE NEGATIVE (NEGATIVE); PROTEIN,URINE NEGATIVE (NEGATIVE); UROBILINOGEN,URINE NORMAL (NORMAL)
[2017-09-01 07:49] LABS: APPEARANCE,URINE HAZY (CLEAR); BACTERIA,URINE NEGATIVE /HPF (NEGATIVE); COLOR,URINE YELLOW (YELLOW); RBC,URINE NONE SEEN /HPF (NONE SEEN); SQUAMOUS EPITHELIAL CELL,UR RARE /HPF (NEGATIVE)
[2017-09-01 08:03] VITALS: BP 158/56
[2017-09-01 08:04] LABS: CKMB % 0.9 % (<4); CREATINE KINASE 106 Units/L (26-192); CREATINE KINASE MB < 1.0 ng/mL (0-4.0); TROPONIN I < 0.02 ng/mL (0-1.5)
[2017-09-01] MEDS ORDERED: HYDROCHLOROTHIAZIDE 12.5 MG CAP PO SCH (11:00)
[2017-09-01] MEDS ORDERED: PROCARDIA XL PO SCH (11:00)
[2017-09-01] MEDS ORDERED: ACTOS PO SCH (11:00)
[2017-09-01] MEDS ORDERED: GLUCOPHAGE ONE (12:30)
[2017-09-01] MEDS: GLUCOPHAGE PO SCH ×2 (12:33→12:34)
== END 2017-09-01 14:04 | disposition home or self-care (01) ==
LOC: ER 23:08 → OBS 09-01 02:59
PROVIDERS: ADMIT Internal Medicine; ATTEND Obstetrics & Gynecology Obstetrics
PROC: 3E0234Z Introduction of Serum, Toxoid and Vaccine into Muscle, Percutaneous Approach (ICD-10-PCS; principal; 2017-09-01)
DX: G45.8 Other transient cerebral ischemic attacks and related syndromes (principal); R20.2 Paresthesia of skin; G57.12 Meralgia paresthetica, left lower limb; E11.65 Type 2 diabetes mellitus with hyperglycemia; I10 Essential (primary) hypertension; G25.81 Restless legs syndrome; J32.8 Other chronic sinusitis; R51 Headache; Z23 Encounter for immunization
CPT/HCPCS: 36415; 70450; 71045; 80053; 81001; 82009; 82550; 82553; 83735; 84484; 85025; 90686; 93005; 93010; 94640; 94760; 99282; A4222; 90670; G0378; J7620

== ENCOUNTER 2019-02-26 20:34 | Observation (INO) ==
[2019-02-26] MEDS ORDERED: DUONEB 0.5 MG/3 MG NEB ONE ×2 (23:14→23:53)
--- NOTE | 2019-02-26 23:14 | DR.GENAD ---
HPI - PCP Primary Care Physician: emilia reilly - HPI Comment HPI Comment: Cough, congestion and wheezing for the past week; worse at night; no fever or chills, nausea or vomiting; using jn at home with little relief;; last hospitalized a year or two ago; intubated w/ of second child; quit cigarettes years ago. - Complaint/Symptoms Chief Complaint:: pt states" I been a little short on my air and I been coughing real hard" pt has wheezing noted and slightly labored breathing - Source History Provided: Patient - Mode of Arrival Mode of Arrival: Ambulatory - Timing Onset of Chief Complaint: 02/25/19 PMH - PMH Past Medical History: Yes Past Medical History: Asthma, Diabetes, Hypertension Past Surgical History: Yes Surgical History: - Family History History of Family Medical Conditions: Yes Family Medical History: Diabetes Mellitus, [place], Hypertension - Social History Does patient currently use any type of tobacco product: No Have you used tobacco products in the last 12 months: No Type of Tobacco Use: None Does any household member use tobacco: No Alcohol Use: None Do you use any recreational Drugs:: No Lives With: Family Lives Where: Home - infectious screening In the last 2 months have you had wt loss of >10#?: NO Have you had fever, night sweats or hemotysis?: No Have you traveled outside the country in the last 6 months?: No Isolation: Standard ROS - Review of Systems Constitutional: See HPI, Malaise Eyes: No Symptoms Reported ENTM: See HPI (post nasal drip) Respiratoy: See HPI, Moist Cough, Short of Breath, Wheezing Cardiovascular: No Symptoms Reported Gastrointestinal/Abdominal: No Symptoms Reported Genitourinary: No Symptoms Reported Neurological: Headache Musculoskeletal: No Symptoms Reported Integumentary: No Symptoms Reported Hematologic/Lymphatic: No Symptoms Reported Endocrine: No Symptoms Reported Psychiatric: No Symptoms Reported PE - General Limitations: No Limitations General Appearance: Alert, Anxious - Head Head Exam: Normal Inspection, Atraumatic - Eyes Eye exam: Normal Appearance, PERRL - ENT ENT Exam: Normal Exam - Neck Neck Exam: Normal Inspection - Chest Chest Inspection: Normal Inspection, Symmetric Chest Wall Rise - Respiratory Respiratory Exam: Bilateral Wheezing - Cardiovascular Cardiovascular Exam: Regular Rate, Normal Rhythm - Abdominal Exam Abdominal Exam: Normal Inspection, Normal Bowel Sounds, Soft - Extremities Extremities Exam: Normal Inspection, Full ROM - Back Back Exam: Normal Inspection, Full ROM - Neurologic Neurological Exam: Alert, Oriented X3 - Psychiatric Psychiatric Exam: Normal Affect, Normal Mood - Skin Skin Exam: Warm - Vital Signs Vitals: Temperature 98.8 F Pulse Rate 97 Respiratory Rate 29 Blood Pressure [Left Arm] 158/56 Blood Pressure 144/67 O2 Sat by Pulse Oximetry 100 Course - Reevaluation 1st: Unchanged 2nd: Improved (minimal improvement in air mvmt, still wheezing and coughing with [id number]) ROR - Labs Reviewed Result Diagrams: 02/27/19 01:59 02/27/19 01:59 - XRAY XRAY Interpreted by: Radiologist (no acute cardiopulmonary finding) Opioid - Opioid Risk Tool Total: 0 Total Score Risk Category: Low Risk - Diagnosis Discharge Problem: Asthma exacerbation Qualifiers: Asthma severity: moderate Asthma persistence: persistent Qualified Code(s): J45.41 - Moderate persistent asthma with (acute) exacerbation - Discharge Plan Disposition: ADMITTED INPATIENT Condition: Stable
[2019-02-26] MEDS ORDERED: SOLU-Medrol 125 MG VIAL IM ONE (23:15)
[2019-02-26] MEDS ORDERED: SOLU-Medrol 125 MG VIAL ONE (23:26)
--- NOTE | 2019-02-26 23:32 | RAD ---
AP Chest Indication: Cough with shortness of breath Comparison: None available Findings: The trachea is midline. The cardiac silhouette is unremarkable. The lungs are clear without focal infiltrate or effusion. The bony thorax is unremarkable. IMPRESSION: 1. No acute cardiopulmonary abnormality. Reported By:
[2019-02-26] MEDS ORDERED: DUONEB 0.5 MG/3 MG ONE (23:53)
[2019-02-27] MEDS ORDERED: DUONEB 0.5 MG/3 MG NEB ONE (00:53)
[2019-02-27] MEDS ORDERED: DUONEB 0.5 MG/3 MG ONE (01:07)
[2019-02-27] MEDS ORDERED: SOLU-Medrol 125 MG VIAL IVP ONE (01:40)
[2019-02-27] MEDS ORDERED: ZITHROMAX INJ 500 MG VIAL 500 MG in NS 250 ML IV 250 ML IV SCH (01:41)
[2019-02-27] MEDS ORDERED: TYLENOL 500 MG TAB EXTRA STRENGTH PO PRN (01:46)
[2019-02-27] MEDS ORDERED: ZOFRAN INJ 4 MG VIAL IVP PRN (01:46)
[2019-02-27] MEDS ORDERED: ROBITUSSIN AC PO PRN (01:46)
[2019-02-27] MEDS ORDERED: ZITHROMAX INJ 500 MG VIAL IV ONE (01:58)
[2019-02-27] MEDS ORDERED: NS 250 ML IV 250 ML IV ONE (01:58)
[2019-02-27] MEDS ORDERED: NS 1000 ML 1,000 ML ONE (02:01)
[2019-02-27 02:10] LABS: BASOPHILS % (AUTO) 0.2 % (0.2-1.0); EOSINOPHILS # (AUTO) 0.1 x10^3/uL (0.0-0.2); EOSINOPHILS % (AUTO) 0.9 % (0.9-2.9); HEMATOCRIT 38.1 % (36.0-47.0); HEMOGLOBIN 12.4 g/dL (12.0-16.0); MEAN CORPUSCULAR HEMOGLOBIN 26.1 pg (27.0-34.0); MEAN CORPUSCULAR HGB CONC 32.5 g/dL (33.0-35.0); MEAN CORPUSCULAR VOLUME 80.2 fL (80.0-100.0); MEAN PLATELET VOLUME 9.3 fL (7.4-11.0); MONOCYTES # (AUTO) 0.4 x10^3/uL (0.3-0.8); MONOCYTES % (AUTO) 4.7 % (0.0-13.0); NEUTROPHILS # (AUTO) 6.1 x10^3/uL (2.2-4.8); NEUTROPHILS % (AUTO) 71.2 % (42.0-75.0); PLATELET COUNT 240 X10^3/uL (150.0-450.0); RED BLOOD COUNT 4.75 X10^6/uL (3.5-5.4); RED CELL DISTRIBUTION WIDTH 13.1 % (11.6-16.5); WHITE BLOOD COUNT 8.6 X10^3/uL (3.6-10.0)
[2019-02-27 02:17] LABS: ALANINE AMINOTRANSFERASE 19 Units/L (12-78); ALBUMIN 3.7 g/dL (3.4-5.0); ALKALINE PHOSPHATASE 111 Units/L (46-116); ASPARTATE AMINO TRANSFERASE 13 Units/L (15-37); BLOOD UREA NITROGEN 14 mg/dL (7-18); CALCIUM 9.2 mg/dL (8.5-10.1); CARBON DIOXIDE 30.3 mmol/L (21-32); CHLORIDE 99 mmol/L (98-107); CREATININE 0.78 mg/dL (0.55-1.02); TOTAL PROTEIN 8.3 g/dL (6.4-8.2); eGFR NON BLACK RACES > 60 (>60)
[2019-02-27 02:37] LABS: COR NA(FOR HYPERGLY) 141 mmol/L (136-145); SODIUM 138 mmol/L (136-145)
[2019-02-27 03:47] VITALS: BMI 33.5
[2019-02-27] MEDS: PROVENTIL NEB TX 0.083% 2.5MG/ 3ML NEB SCH ×5 (04:28→20:35)
[2019-02-27] MEDS ORDERED: HumuLIN R ONE (05:32)
[2019-02-27] MEDS: HumuLIN R SUBCUT PRN ×4 (06:03→21:18)
[2019-02-27] MEDS ORDERED: ZESTRIL TAB 20 MG ONE (08:14)
[2019-02-27] MEDS ORDERED: REFLEX: PROVENTIL NEB & PulmiCORT NEB~ NEB SCH (08:45)
[2019-02-27] MEDS ORDERED: PATIENT'S HOME MEDICATION (Nifedipine 90 MG) PO SCH (09:00)
[2019-02-27] MEDS ORDERED: SOLU-Medrol 125 MG VIAL IVP SCH (09:00)
[2019-02-27] MEDS ORDERED: ZESTRIL TAB 20 MG PO SCH (09:00)
[2019-02-27] MEDS: FLONASE NASAL SPRAY ENOSTRIL SCH (10:03)
[2019-02-27] MEDS: LEVAQUIN TAB 750 MG PO SCH (10:04)
[2019-02-27] MEDS: PROCARDIA XL PO SCH ×2 (10:04)
[2019-02-27] MEDS: SINGULAIR TAB 10 MG PO SCH (10:05)
[2019-02-27] MEDS: GLUCOPHAGE XR PO SCH ×2 (10:05→21:17)
[2019-02-27] MEDS: HYDROCHLOROTHIAZIDE 12.5 MG CAP PO SCH (10:06)
[2019-02-27] MEDS: LOVENOX INJ 40 MG SYR SC SCH (11:22)
[2019-02-27] MEDS ORDERED: SNACK - Diabetic Appropriate PO SCH (20:00)
[2019-02-27] MEDS: PULMICORT NEB TX 0.5 MG NEB SCH (20:35)
[2019-02-28] MEDS: PROVENTIL NEB TX 0.083% 2.5MG/ 3ML NEB SCH ×4 (00:40→12:03)
[2019-02-28] MEDS: ZITHROMAX INJ 500 MG VIAL 500 MG in NS 250 ML IV 250 ML IV SCH ×2 (01:53→09:17)
[2019-02-28] MEDS: HumuLIN R SUBCUT PRN (05:33)
[2019-02-28 07:59] VITALS: BP 135/72
[2019-02-28] MEDS: GLUCOPHAGE XR PO SCH (08:25)
[2019-02-28] MEDS: LEVAQUIN TAB 750 MG PO SCH (08:25)
[2019-02-28] MEDS: PROCARDIA XL PO SCH ×2 (08:25)
[2019-02-28] MEDS: LOVENOX INJ 40 MG SYR SC SCH (08:26)
[2019-02-28] MEDS: SINGULAIR TAB 10 MG PO SCH (08:26)
[2019-02-28] MEDS: HYDROCHLOROTHIAZIDE 12.5 MG CAP PO SCH (08:26)
[2019-02-28] MEDS: FLONASE NASAL SPRAY ENOSTRIL SCH (08:27)
[2019-02-28] MEDS: PULMICORT NEB TX 0.5 MG NEB SCH (09:27)
== END 2019-02-28 11:30 | disposition home or self-care (01) ==
LOC: EDBD → ICU 20:34 → ER 20:34 → ICU 02-27 03:35
PROVIDERS: ADMIT Internal Medicine; ATTEND Obstetrics & Gynecology Obstetrics
CPT/HCPCS: 36415; 71010; 71045; 80053; 85025; 94640; 96360; 96361; 96365; 96372; 96374; 99284; A4222; G0378; J0456; J1650; J1815; J2930; J7030; J7050; J7613; J7620; J7626